=== PATIENT | female | born 1985 | race Asian ===

== ENCOUNTER 2018-08-27 09:59 | Inpatient (IN) | payer SELFPAY ==
[~2018-08-27] VITALS: Ht 168 cm; Wt 72.6 kg
[2018-08-30] MEDS ORDERED: METHYLERGONOVINE 0.2 MG/ML AMP IM PRN ×2 (06:45→15:45)
[2018-08-30] MEDS ORDERED: NALBUPHINE 10 MG/ML AMP IVP PRN (06:45)
[2018-08-30] MEDS ORDERED: OXYTOCIN 10 UNITS/ML VIAL IM SCH (06:45)
[2018-08-30] MEDS ORDERED: OXYTOCIN 20 UNITS in LACTATED RINGERS 1,000 ML IV SCH (06:45)
[2018-08-30] MEDS ORDERED: FOLI0.8T PO (07:50)
[2018-08-30] MEDS ORDERED: DOCO100C PO (07:50)
[2018-08-30] MEDS ORDERED: FERR-252 PO (07:50)
[2018-08-30 08:18] VITALS: BP 108/68
[2018-08-30 08:23] LABS: BASOPHILS % (AUTO) 0.1 % (0.0-2.0); EOSINOPHILS # (AUTO) 0.1 K/uL (0-0.4); EOSINOPHILS % (AUTO) 0.6 % (0.0-4.0); HEMATOCRIT 33.7 % (36-48); HEMOGLOBIN 11.6 g/dL (12.0-16.0); LYMPHOCYTES # (AUTO) 1.8 K/uL (2.5-16.5); LYMPHOCYTES % (AUTO) 16.9 % (20.5-51.1); MEAN CORPUSCULAR HEMOGLOBIN 34 pg (27-31); MEAN CORPUSCULAR HGB CONC 34 g/dL (33-37); MEAN CORPUSCULAR VOLUME 99.7 fL (80-94); MONOCYTES # (AUTO) 0.6 K/uL (0.8-1.0); MONOCYTES % (AUTO) 5.8 % (1.7-9.3); NEUTROPHILS % (AUTO) 76.6 % (42.2-75.2); PLATELET COUNT (AUTO) 275 K/uL (140-450); RED BLOOD CELL COUNT(AUTO) 3.38 MIL/uL (4.20-5.40); RED CELL DISTRIBUTION WIDTH 14.5 % (11.6-13.7); WHITE BLOOD COUNT (AUTO) 10.4 K/uL (4.8-10.8)
--- NOTE | 2018-08-30 08:34 | NUR ---
PATIENT HAS BEEN SCREENED AND CATEGORIZED LOW NUTRITION RISK. PATIENT WILL BE SEEN WITHIN 7 DAYS OF ADMISSION. 09/05/[address]
[2018-08-30 08:59] LABS: APPEARANCE,URINE HAZY (CLEAR); BILIRUBIN,URINE 1+ (NEGATIVE); BLOOD, URINE NEGATIVE (NEGATIVE); COLOR,URINE YELLOW (YELLOW); LEUKOCYTE ESTERASE ,URINE NEGATIVE (NEGATIVE); NITRITE, URINE NEGATIVE (NEGATIVE); UGLUCOSE NEGATIVE (NEGATIVE)
[2018-08-30 09:28] LABS: RBC,URINE NONE SEEN /HPF (0-5)
[2018-08-30 09:33] LABS: CALCIUM OXALATE CRYSTALS,UR 0-10 /HPF (None Seen)
[2018-08-30] MEDS: LACTATED RINGERS 1,000 ML IV SCH ×2 (11:19→12:36)
[2018-08-30] MEDS ORDERED: ROPIVACAINE 0.2%/NS PREMIX 250 ML EPI ONE (11:24)
[2018-08-30] MEDS ORDERED: ROPIVACAINE 0.2%/NS PREMIX 250 ML EPI SCH (11:50)
[2018-08-30] MEDS ORDERED: OXYTOCIN 10 UNITS/ML VIAL IM PRN (15:45)
[2018-08-30] MEDS ORDERED: HYDROcodone/APAP 5/325 MG 1 TAB TAB PO PRN (15:45)
[2018-08-30] MEDS ORDERED: MEASLES, MUMPS, AND RUBELLA 1 VIAL SQVAC PRN (15:45)
[2018-08-30] MEDS ORDERED: TEMAZEPAM 15 MG CAP PO PRN (15:45)
[2018-08-30] MEDS ORDERED: BENZOCAINE/MENTHOL 20%-0.5% 60 GM CAN TP PRN (15:45)
[2018-08-30] MEDS ORDERED: oxyCODONE/APAP 5/325 MG 1 TAB TAB PO PRN (15:45)
[2018-08-30] MEDS ORDERED: DOCUSATE SOD/SENNA 50/8.6 MG 1 TAB PO SCH (21:00)
[2018-08-30] MEDS: IBUPROFEN 800 MG TAB PO PRN (21:41)
[2018-08-31] MEDS ORDERED: INFLUENZA VIRUS VACCINE QUAD 0.5 ML SYR IMVAC SCH (06:45)
[2018-08-31] MEDS ORDERED: BISACODYL 10 MG SUPP RC PRN (16:50)
[2018-08-31] MEDS ORDERED: MAGNESIUM HYDROXIDE 2400 MG/30 ML UDC PO PRN (16:50)
[2018-08-31 17:40] LABS: HEMATOCRIT 26.7 % (36-48); HEMOGLOBIN 9.2 g/dL (12.0-16.0)
[2018-08-31] MEDS: IBUPROFEN 800 MG TAB PO PRN (21:07)
== END 2018-09-01 14:00 | disposition home or self-care (01) | DRG 807 ==
LOC: MLD 08-30 06:15 → MFCC 08-30 18:50
PROVIDERS: ADMIT Obstetrics & Gynecology; ATTEND Obstetrics & Gynecology
PROC: 3E0234Z Introduction of Serum, Toxoid and Vaccine into Muscle, Percutaneous Approach (ICD-10-PCS; 2018-08-30)
PROC: 10E0XZZ Delivery of Products of Conception, External Approach (ICD-10-PCS; principal; 2018-08-31)
PROC: 3E02340 Introduction of Influenza Vaccine into Muscle, Percutaneous Approach (ICD-10-PCS; 2018-08-31)
DX: O80 Encounter for full-term uncomplicated delivery (principal); Z37.0 Single live birth; Z3A.00 Weeks of gestation of pregnancy not specified; Z23 Encounter for immunization
CPT/HCPCS: 36415; 51702; 59409; 81001; 85018; 85025; 86592; 86886; 86900; 86901; 87086; 90658; 90715; J2590; J2795; J7120